=== PATIENT | male | born 1945 | race Hispanic/Latino ===

== ENCOUNTER 2017-05-13 11:30 | Observation (INO) | payer MEDICARE ==
[~2017-05-13] VITALS: Ht 167.6 cm; Wt 73.0 kg
[2017-05-13 12:07] VITALS: BP 136/67
[2017-05-13 12:21] LABS: BASOPHILS % (AUTO) 0.2 % (0.0-5.0); HEMATOCRIT 44.1 % (42-54); LYMPHOCYTES % (AUTO) 12.8 % (21.0-51.0); MEAN CORPUSCULAR HEMOGLOBIN 32.1 pg (27.0-33.0); MEAN CORPUSCULAR HGB CONC 35.1 g/dL (32.0-36.0); MEAN CORPUSCULAR VOLUME 91.5 fL (79-99); MONOCYTES % (AUTO) 5.8 % (3.0-13.0); NEUTROPHILS % (AUTO) 80.2 % (40.0-77.0); PLATELET COUNT (AUTO) 142 K/uL (130-400); RED BLOOD CELL COUNT(AUTO) 4.82 MIL/uL (4.50-6.20); RED CELL DISTRIBUTION WIDTH 12.9 % (11.0-15.5); WHITE BLOOD COUNT (AUTO) 7.6 K/uL (4.8-10.8)
[2017-05-13 12:28] LABS: CREATININE 0.8 mg/dL (0.5-1.5)
[2017-05-13] MEDS ORDERED: CICL34.6 TP (12:34)
[2017-05-13] MEDS ORDERED: TAMS0.4C32 PO (12:34)
[2017-05-13] MEDS ORDERED: MULT-603 PO (12:34)
[2017-05-13] MEDS ORDERED: PRAV20TA4 PO (12:34)
[2017-05-13] MEDS ORDERED: BUDE10.2 IH (12:34)
[2017-05-13] MEDS ORDERED: ASPI-1181 PO (12:34)
[2017-05-13] MEDS ORDERED: TERB250T51 PO (12:34)
[2017-05-18] VITALS (25 sets, daily range): BP systolic 108–165; BP diastolic 71–97
[2017-05-18] MEDS ORDERED: SODIUM CHLORIDE 0.9% 1000ML 1,000 ML IV ONE ×2 (06:10→16:05)
[2017-05-18] MEDS ORDERED: CEFAZOLIN SODIUM 1 GM VIAL ONE (06:11)
[2017-05-18] MEDS ORDERED: WATER FOR INJECTION,STERILE 20 ML VIAL ONE (06:15)
[2017-05-18] MEDS ORDERED: DEXAMETHASONE SOD PHOSPHATE 10MG/ML 1ML VIAL ONE (07:40)
[2017-05-18] MEDS ORDERED: ONDANSETRON HCL 4 MG/2 ML VIAL ONE (07:40)
[2017-05-18] MEDS ORDERED: GLYCOPYRROLATE 0.2 MG/ML 5 ML VIAL ONE (07:40)
[2017-05-18] MEDS ORDERED: NEOSTIGMINE METHYLSULFATE 1MG/ML IV ONE (07:40)
[2017-05-18] MEDS ORDERED: LIDOCAINE PF 2% 5ML ABBOJECT ONE (07:40)
[2017-05-18] MEDS ORDERED: SUCCINYLCHOLINE 200MG/10ML SYR ONE (07:40)
[2017-05-18] MEDS ORDERED: FENTANYL CITRATE PF 50 MCG/1 ML 2ML VIAL ONE (07:41)
[2017-05-18] MEDS ORDERED: PROPOFOL 10 MG/ML 20ML VIAL IV ONE (07:41)
[2017-05-18] MEDS ORDERED: MIDAZOLAM HCL 1 MG/ML 2ML VIAL ONE (07:41)
[2017-05-18] MEDS ORDERED: CEFAZOLIN SODIUM 1 GM VIAL IVP ONE (08:00)
[2017-05-18] MEDS: KETOROLAC TROMETHAMINE 15MG/ML IV PRN ×2 (10:36→17:47)
[2017-05-18] MEDS: ALBUTEROL SULFATE 0.083% 2.5 MG/3 ML INH IH SCH ×2 (13:09→20:24)
[2017-05-18] MEDS: BUDESONIDE 0.5 MG/2 ML INH IH SCH (20:33)
[2017-05-18] MEDS: ATORVASTATIN CALCIUM 10 MG TABLET PO SCH (20:59)
[2017-05-19] VITALS (7 sets, daily range): BP systolic 98–132; BP diastolic 57–76
[2017-05-19] MEDS: ALBUTEROL SULFATE 0.083% 2.5 MG/3 ML INH IH SCH ×5 (01:10→23:35)
[2017-05-19 05:10] LABS: HEMATOCRIT 34.5 % (42-54)
[2017-05-19] MEDS: BUDESONIDE 0.5 MG/2 ML INH IH SCH ×2 (06:17→19:38)
[2017-05-19] MEDS: TAMSULOSIN HCL 0.4 MG CAP.ER.24H PO SCH (08:30)
[2017-05-19] MEDS: MULTIVITAMIN TABLET PO SCH (08:31)
[2017-05-19] MEDS: TERBINAFINE HCL 250 MG PO SCH (08:33)
[2017-05-19] MEDS: [UNRECOGNIZED DRUG - MIXTURE] TP SCH (08:33)
[2017-05-19] MEDS: KETOROLAC TROMETHAMINE 15MG/ML IV PRN (14:17)
[2017-05-19] MEDS: ATORVASTATIN CALCIUM 10 MG TABLET PO SCH (21:54)
[2017-05-20 04:50] VITALS: BP 110/61
[2017-05-20] MEDS: ALBUTEROL SULFATE 0.083% 2.5 MG/3 ML INH IH SCH ×2 (06:20→11:11)
[2017-05-20] MEDS: BUDESONIDE 0.5 MG/2 ML INH IH SCH (06:20)
[2017-05-20 08:05] VITALS: BP 113/63
[2017-05-20] MEDS: TERBINAFINE HCL 250 MG PO SCH (09:00)
[2017-05-20] MEDS: [UNRECOGNIZED DRUG - MIXTURE] TP SCH (09:00)
[2017-05-20] MEDS: MULTIVITAMIN TABLET PO SCH (09:21)
[2017-05-20] MEDS: TAMSULOSIN HCL 0.4 MG CAP.ER.24H PO SCH (09:21)
[2017-05-20 11:51] VITALS: BP 120/63
[2017-05-20] MEDS: KETOROLAC TROMETHAMINE 15MG/ML IV PRN (14:31)
== END 2017-05-20 15:42 | disposition home or self-care (01) ==
LOC: EDSTATUS 11:30 → DAHIP 05-18 06:09 → 4AH 05-18 09:26
PROVIDERS: ADMIT Surgery; ATTEND Surgery
DX: N40.0 Benign prostatic hyperplasia without lower urinary tract symptoms (principal); E78.5 Hyperlipidemia, unspecified; Z98.890 Other specified postprocedural states; I10 Essential (primary) hypertension; Z90.79 Acquired absence of other genital organ(s)
CPT/HCPCS: 36415 ×3; 52601; 80048; 85025; 86850 ×2; 86900 ×2; 86901 ×2; 87088; 88305; 93005; 94640 ×12; 94664; 96374; 96376 ×3; A4354; A4358; C1758; G0378 ×59; J0330; J0690; J1100; J1885 ×4; J2001; J2250; J2405; J2704; J2710; J3010; J3490; J7030 ×2; J7120